=== PATIENT | male | born 1955 | race Caucasian/White ===

== ENCOUNTER → 2019-11-27 | Outpatient (CLI) | payer BC, OTHER ==
--- NOTE | 2019-11-27 17:20 | RAD ---
ABDOMEN SUPINE UPRIGHT History: Abdominal pain Comparison: None. Findings: Single upright 3 supine AP views of the abdomen are submitted. No free air is identified. There is relative paucity of gas in the bowel, no gas dilated bowel identified. There are likely splenic and hepatic granulomas. There is L4-5 degenerative disc disease. Impression: 1. There is nonspecific paucity of gas, no gas dilated bowel identified. Electronically signed by: Iain Godinez MD (11/27/2019 5:17 PM) [id number]
== END | disposition home or self-care (01) ==
LOC: RAD 15:21
PROVIDERS: ATTEND Physician Assistant
DX: R10.13 Epigastric pain (principal); M51.36 Other intervertebral disc degeneration, lumbar region
CPT/HCPCS: 74019

== ENCOUNTER → 2019-12-03 | Outpatient (CLI) | payer OTHER ==
--- NOTE | 2019-12-03 08:41 | RAD ---
Examination: Ultrasound abdomen complete HISTORY: History of epigastric pain COMPARISON: None available FINDINGS: The liver length measures 18.5 cm. The pancreas, aorta, IVC are not well-visualized due to bowel gas. Common bile duct measures 4.3 mm in transverse dimension. Multiple gallstones identified within the gallbladder with wall echo shadowing. The right kidney measures 11.1 x 5.4 x 4.8 cm. The left kidney measures 12.1 x 5.8 x 5.7 cm. The spleen is not well-visualized due to bowel gas. IMPRESSION: 1. Cholelithiasis filling the gallbladder with wall echo shadowing. Electronically signed by: Luciano Tracy MD (12/03/2019 8:38 AM) [id number]
== END | disposition home or self-care (01) ==
LOC: US 07:49
PROVIDERS: ATTEND Physician Assistant
DX: K80.20 Calculus of gallbladder without cholecystitis without obstruction (principal)
CPT/HCPCS: 76700